=== PATIENT | female | born 1975 | race Caucasian/White ===

== ENCOUNTER 2020-11-26 18:17 | Emergency (ER) | payer BC ==
[~2020-11-26] VITALS: Ht 160 cm; Wt 120.2 kg
[2020-11-26 18:29] VITALS: BP_SYST 143
[2020-11-26 18:55] LABS: BILIRUBIN,URINE NEGATIVE (NEGATIVE); BLOOD, URINE NEGATIVE (NEGATIVE); CLARITY/URINE CLEAR (CLEAR); COLOR,URINE YELLOW (YELLOW); GLUCOSE,URINE 1+ (NEGATIVE); KETONES,URINE 2+ (NEGATIVE); LEUKOCYTE ESTERASE ,URINE NEGATIVE (NEGATIVE); NITRITE, URINE NEGATIVE (NEGATIVE); PROTEIN URINE NEGATIVE (NEGATIVE); UROBILINOGEN,URINE 0.2 (0.2-1.0)
--- NOTE | 2020-11-26 19:00 | NUR ---
Patient to ER bed 2 to gown for evaluation. Side rails up. Report given to Aleksey ESCOBAR.
--- NOTE | 2020-11-26 19:02 | NUR ---
ER at bedside examining patient.
[2020-11-26 19:15] LABS: HCG,QUAL RESULT NEGATIVE (NEGATIVE)
--- NOTE | 2020-11-26 19:30 | NUR ---
Pt BIB family to ED with history of DM and migraines, presents to the ED for evaluation after she noted high ketones in her urine today and 1 week history of left sided headache. Patient usually takes Imitrex for her migraines but has not taken any today. She is unsure whether her headache is the result of her high blood sugar or migraines. Patient treats her DM with Metformin. Patient is concerned of DKA because of her high ketones. Otherwise, denies fever, chills, chest pain, shortness of breath, neurological deficits, visual acuity changes, limb pain, tingling, numbness, or other complaints.
[2020-11-26 19:35] LABS: CALCIUM 8.5 mg/dL (8.4-11.0); CREATININE 0.77 mg/dL (0.55-1.30); POTASSIUM 3.9 mmol/L (3.5-5.1)
--- NOTE | 2020-11-26 20:20 | NUR ---
VSS no s/s of acute distress Resting on gurney rails up
[2020-11-26 21:20] VITALS: BP_SYST 143
--- NOTE | 2020-11-26 21:20 | NUR ---
Patient given written and verbal discharge instructions and verbalizes understanding. ER MD discussed with patient the results and treatment provided. Patient in stable condition. ID arm band removed. Patient educated on pain management and to follow up with PMD. Pain Scale 0/10 Opportunity for questions provided and answered.
== END 2020-11-26 21:20 | disposition home or self-care (01) ==
LOC: SED 18:17
DX: E11.65 Type 2 diabetes mellitus with hyperglycemia (principal); Z88.1 Allergy status to other antibiotic agents
CPT/HCPCS: 36415; 80048; 81003; 82962; 84703; 99283